=== PATIENT | male | born 2000 | race Caucasian/White ===

== ENCOUNTER 2021-03-03 12:08 | Emergency (ER) | payer OTHER, SELFPAY ==
[2021-03-03 12:37] VITALS: BP 150/85; PULSE 100; RESP 19; TEMP 36.6; O2SAT 98; BMI 32.5
[2021-03-03] MEDS: Diphth,Pertus(ACell),Tet Adult 0.5 ML SYRINGE IM (15:36)
[2021-03-03] MEDS: oxyCODONE HCl Immed Release 5 MG TABLET PO (15:36)
[2021-03-03] MEDS: Lidocaine HCl 2 % MPF 5 ML VIAL INFILTRATI (15:37)
--- NOTE | 2021-03-03 15:43 | ED_ITS ---
HPI - Wound/Laceration General Chief Complaint: Wound/Laceration Stated Complaint: abscess lower tailbone Time Seen by Provider: 03/03/21 14:22 Source: patient Mode of arrival: ambulatory Limitations: no limitations History of Present Illness HPI narrative: Patient presents to the ED for pilonidal abscess. Patient states this has been drained before in the past ( early last year). Patient states having foul odor from abscess. Patient denies any recent trauma to the area. Patient denies any fever or chills Related Data Previous Rx's Medication Instructions Recorded cephalexin 500 mg capsule 500 mg PO QID 7 Days #28 cap 03/03/21 doxycycline hyclate 100 mg capsule 100 mg PO BID 7 Days #14 cap 03/03/21 oxycodone-acetaminophen 5 mg-325 1 tab PO TID PRN #9 tab 03/03/21 mg tablet (Percocet) Allergies Allergy/AdvReac Type Severity Reaction Status Date / Time No Known Allergies Allergy Verified 03/03/21 14:22 Review of Systems Review of Systems: Only symptom is Pilondial abscess Yes all other systems are reviewed and are negative [facility] Social History Social History Advance Directives: No Advance Directives Information Provided: No Physical Exam Vital Signs: Vital Signs: Last Vital Signs Temp 98 F 03/03/21 12:37 Pulse 100 03/03/21 12:37 Resp 19 03/03/21 12:37 BP 150/85 H 03/03/21 12:37 Pulse Ox 98 03/03/21 12:37 BMI result Body Mass Index 32.5 Const: General: cooperative, healthy appearing, comfortable, no acute distress, well developed, alert, awake and Physically active Orientation/consciousness: patient oriented x3 HENMT: Head: Yes normal to inspection, Yes No palpable skull fracture present, Yes normocephalic, Yes atraumatic and No abrasion Eyes: General: appearance normal, both eyes and all related structures Neck: Neck: Yes normal visual inspection, Yes full ROM, Yes no lymphadenopathy, Yes no meningeal signs, Yes trachea midline, Yes supple, No anterior neck swelling and No tender Chest: Chest palpation & inspection: normal inspection of the chest and normal palpation of entire chest wall Resp: Effort & Inspection: normal respiratory effort and able to speak in complete sentences Auscultation: clear to auscultation bilaterally Cardio: Jugular venous distension: no JVD Heart sounds: S1 normal heart sound present and S2 normal heart sound present GI: Inspection: Yes normal to inspection and No abdominal wall ecchymosis Palpation (GI): Soft to palpation, not firm, nontender, no guarding and not rigid : General: No CVA tenderness and Yes no CVA tenderness Back/Spine/Pelvis: Other: Positive for pilondial the abscess Back: no CVA tenderness, No CVA tenderness and No back tenderness Back/spine/pelvis image: 1. Pilondial abscess Skin: General skin exam: no rashes or lesions noted and elasticity normal Neuro: General: patient oriented x3, gait normal, no meningeal signs and CN's II-XI intact bilaterally Cranial nerves: Yes CN's II-XII intact bilaterally Extrem: General: Yes normal to inspection and Yes full ROM Psych: Appearance: grossly normal, well kempt and not disheveled Course Course Course Narrative: Pilonidal abscess. Reevaluation(s) Reevaluation #1: Wound cleaned with Betadine and sterile saline. 10 mL of 2% lidocaine used for anesthesia. Eleven scalpel used for incision. Foul odor bloody pus discharge was squeezed. Forceps used to open the pocket. Tiffanie saline used for wash out. Dressing placed.. Patient given tetanus. Patient discharged with antibiotics Time: 16:35 Discharge Plan Discharge Clinical Impression: Pilonidal abscess Patient Disposition: Home, Self-Care Instructions: Pilonidal Cyst (ED), Abscess (ED) Additional Instructions: You will be discharged with antibiotics. Return to the ED for worsening pain, green-yellow discharge, fever, chills, or any other concerning symptoms. Please follow-up with primary care provider Prescriptions: New doxycycline hyclate 100 mg capsule 100 mg PO BID 7 Days Qty: 14 RF: 0 cephalexin 500 mg capsule 500 mg PO QID 7 Days Qty: 28 RF: 0 oxycodone-acetaminophen [Percocet] 5-325 mg tablet 1 tab PO TID PRN (Reason: pain) Qty: 9 RF: 0 Stand Alone Forms: Work/School Release Interventions: ED Discharge Assessment Last Done: 03/03/21 16:13 Print Language: Iranian
== END 2021-03-03 16:13 | disposition home or self-care (01) ==
PROVIDERS: Emergency Provider Emergency Medicine
DX: L05.01 Pilonidal cyst with abscess (principal)
CPT/HCPCS: 10080; 90471; 90715; 99284